=== PATIENT | male | born 1990 | race African-American/Black ===

== ENCOUNTER 2016-11-29 12:41 | Inpatient (IN) | payer BC ==
[~2016-11-29] VITALS: Ht 180.3 cm; Wt 143.4 kg
[~2016-11-29 12:41] MED LIST: AMOXICILLIN500 MG PO
[2016-11-29 13:55] LABS: HEMATOCRIT 51.2 % (38.0-50.0); MCH 28.6 PG (29.0-34.0); MCHC 35.7 G/DL (30.0-36.0); MCV 80.1 FL (86-99); MEAN PLAT.VOLUME 9.9 uM^3 (9.0-12.4); PLATELET COUNT 266 K/uL (156-360); RBC DIS.WIDTH-CV 12.4 % (11.8-14.6); RBC DIS.WIDTH-SD 36.1 % (39-53); RED BLOOD COUNT 6.39 M/uL (4.00-5.50); WHITE BLOOD COUNT 4.8 K/uL (4.1-10.2)
[2016-11-29 14:05] LABS: CHLORIDE 102 mEq/L (99-109); POTASSIUM 5.6 mEq/L (3.7-5.4); SODIUM 137 mEq/L (136-147)
[2016-11-29 14:06] LABS: GLUCOSE 58 mg/dL (70-99)
[2016-11-29 14:08] LABS: ANION GAP 12 MEQ/L (2-14)
[2016-11-29 14:10] LABS: GFR ESTIMATE (CALCULATED) > 59 mL/min/
[2016-11-29 14:11] LABS: UREA NITROGEN (BUN) 20 mg/dL (9-23)
[2016-11-29 14:28] LABS: CREATINE KINASE 1688 IU/L (1-294)
[2016-11-29] MEDS ORDERED: FLEXERIL10 MG PO (15:37)
[2016-11-29] MEDS ORDERED: MOTRIN800 MG PO (15:37)
[2016-11-29 16:21] LABS: ALKALINE PHOSPHATASE 76 IU/L (3-129)
[2016-11-29 16:23] LABS: DIRECT BILIRUBIN 0.3 mg/dL (0.0-0.3)
[2016-11-29 16:50] VITALS: BP 157/101
[2016-11-29 19:46] VITALS: BP 137/66
[2016-11-29 21:08] LABS: ALKALINE PHOSPHATASE 51 IU/L (3-129); ANION GAP 8 MEQ/L (2-14); CHLORIDE 104 MEQ/L (99-109); CREATINE KINASE 962 IU/L (1-294); GFR ESTIMATE (CALCULATED) > 59 mL/min/; GLUCOSE 92 mg/dL (70-99); POTASSIUM 4.3 MEQ/L (3.7-5.4); SAMPLE HEMOLYSIS CHECK 0; SAMPLE ICTERIC CHECK 0; SAMPLE LIPEMIA CHECK 0; SODIUM 137 MEQ/L (136-147); TOTAL BILIRUBIN 0.7 MG/DL (0.0-1.0); UREA NITROGEN (BUN) 19 mg/dL (9-23)
[2016-11-30] VITALS: BP 137/71
[2016-11-30 04:00] VITALS: BP 146/80
[2016-11-30 07:20] LABS: HEMATOCRIT 43.5 % (38.0-50.0); MCH 29.4 PG (29.0-34.0); MCHC 34.7 G/DL (30.0-36.0); MEAN PLAT.VOLUME 10.6 uM^3 (9.0-12.4); PLATELET COUNT 191 K/uL (156-360); RBC DIS.WIDTH-CV 12.4 % (11.8-14.6); RBC DIS.WIDTH-SD 37.8 % (39-53); WHITE BLOOD COUNT 4.3 K/uL (4.1-10.2)
[2016-11-30 07:21] LABS: MCV 84.8 FL (86-99); RED BLOOD COUNT 5.13 M/uL (4.00-5.50)
[2016-11-30 07:32] LABS: ANION GAP 6 MEQ/L (2-14); CHLORIDE 106 MEQ/L (99-109); GFR ESTIMATE (CALCULATED) > 59 mL/min/; GLUCOSE 91 mg/dL (70-99); POTASSIUM 4.6 MEQ/L (3.7-5.4); SAMPLE HEMOLYSIS CHECK 0; SAMPLE ICTERIC CHECK 0; SAMPLE LIPEMIA CHECK 0; SODIUM 136 MEQ/L (136-147); UREA NITROGEN (BUN) 16 mg/dL (9-23)
[2016-11-30 08:02] LABS: CREATINE KINASE 766 IU/L (1-294)
[2016-11-30 08:03] VITALS: BP 115/55
[2016-11-30 11:36] VITALS: BP 140/61
[2016-11-30 16:09] VITALS: BP 140/62
[2016-11-30 19:39] VITALS: BP 162/76
[2016-12-01 00:04] VITALS: BP 152/80
[2016-12-01 04:20] VITALS: BP 143/77
[2016-12-01 07:59] VITALS: BP 140/68
[2016-12-01 08:43] LABS: ALKALINE PHOSPHATASE 46 IU/L (3-129); DIRECT BILIRUBIN 0.2 mg/dL (0.0-0.3); TOTAL BILIRUBIN 0.8 MG/DL (0.0-1.0)
[2016-12-01 10:31] LABS: ANION GAP 8 MEQ/L (2-14); CHLORIDE 107 MEQ/L (99-109); CREATINE KINASE 539 IU/L (1-294); GFR ESTIMATE (CALCULATED) > 59 mL/min/; GLUCOSE 86 mg/dL (70-99); SODIUM 140 MEQ/L (136-147); TOTAL CK 539 IU/L (1-294); UREA NITROGEN (BUN) 12 mg/dL (9-23)
[2016-12-01 11:19] LABS: CK-MB 2.6 ng/mL (0.0-4.9)
[2016-12-01 12:00] VITALS: BP 142/70
== END 2016-12-01 14:44 | disposition home or self-care (01) | DRG 558 ==
LOC: EME 12:41 → EDOF 15:20 → 5SOUTH 15:20
PROVIDERS: Internal Medicine; Nurse Practitioner Adult Health; Physician Assistant
DX: M62.82 Rhabdomyolysis (principal); E16.2 Hypoglycemia, unspecified; E86.0 Dehydration; E87.5 Hyperkalemia; E83.51 Hypocalcemia
CPT/HCPCS: 72020; 80048; 80053; 80076; 81003; 82550; 82550 91; 82553; 85027; 99281; 99285; J3010; J7030

== ENCOUNTER 2017-10-03 12:15 | Emergency (ER) | payer BC ==
[~2017-10-03] VITALS: Ht 180.3 cm; Wt 125.4 kg
[~2017-10-03 12:15] MED LIST changes: +FLEXERIL10 MG PO; +MOTRIN800 MG PO
[2017-10-03 13:28] LABS: HEMATOCRIT 41.1 % (38.0-50.0); MCH 28.9 PG (29.0-34.0); MCHC 33.8 G/DL (30.0-36.0); MCV 85.4 FL (86-99); MEAN PLAT.VOLUME 10.3 uM^3 (9.0-12.4); PLATELET COUNT 196 K/uL (156-360); RBC DIS.WIDTH-CV 11.8 % (11.8-14.6); RBC DIS.WIDTH-SD 37.1 % (39-53); RED BLOOD COUNT 4.81 M/uL (4.00-5.50); WHITE BLOOD COUNT 11.9 K/uL (4.1-10.2)
[2017-10-03 13:56] LABS: ALKALINE PHOSPHATASE 55 IU/L (3-129); ANION GAP 10 MEQ/L (2-14); CHLORIDE 105 MEQ/L (99-109); GFR ESTIMATE (CALCULATED) > 59 mL/min/; GLUCOSE 103 mg/dL (70-99); POTASSIUM 3.8 MEQ/L (3.7-5.4); SAMPLE HEMOLYSIS CHECK 0; SAMPLE ICTERIC CHECK 0; SAMPLE LIPEMIA CHECK 0; SODIUM 140 MEQ/L (136-147); TOTAL BILIRUBIN 0.9 MG/DL (0.0-1.0); UREA NITROGEN (BUN) 6 mg/dL (9-23)
[2017-10-03 14:05] LABS: INTERNAL CONTROL VALID? YES; MONOSPOT (MONONUCLEOSIS SEROL) NEGATIVE
[2017-10-03] MEDS ORDERED: XYLOCAINE VISC100 ML PO (15:03)
[2017-10-03] MEDS ORDERED: KEFLEX500 MG PO (15:03)
[2017-10-03 15:24] VITALS: BP 130/69
== END 2017-10-03 15:24 | disposition home or self-care (01) ==
LOC: EME 12:15
DX: R13.10 Dysphagia, unspecified (principal); L04.0 Acute lymphadenitis of face, head and neck; J45.909 Unspecified asthma, uncomplicated; Z87.891 Personal history of nicotine dependence
CPT/HCPCS: 80053; 85027; 86308; 99281; 99284; J1100